=== PATIENT | female | born 1955 | race Caucasian/White ===

== ENCOUNTER → 2016-11-22 | Outpatient (CLI) | payer BC ==
[~2016-11-22] MED LIST: ADVIL PM PO; ATIVAN PO; CERTAGEN PO; FLEXERIL PO; IBUPROFEN PO; NORCO 5/325 TAB1 TAB PO; PROTONIX PO
--- NOTE | ~2016-11-22 | US5 ---
[facility] A Service of [facility] RADIOLOGY TEXT RESULTS PATIENT: RAFA WYNNE LOCATION: [facility] : 59 UNIT #: [id number] AGE: [address]: Jarek Franklin MD SEX: F ORDER DR: [id number] [address] [id number] O MR#: [id number] Acc #: [id number] NAME: RAFA WYNNE : 1955 SEX: F STUDY DATE/TIME: 11/22/2016 10:02 UNIT: [facility] ROOM: STUDY DESCRIPTION: US Abdominal Complete Attending Physician: Jarek Franklin M.D. Referring Physician: Jarek Franklin M.D. Ordering Physician: Jarek Franklin M.D. Primary Care Physician: Jarek Franklin M.D. MEDICAL IMAGING REPORT This report is preliminary unless electronic signature is present. EXAM Abdominal ultrasound complete 11/22/2016 INDICATIONS 61-year-old female with right upper quadrant pain for the past 6 months-year. Pain has been getting worse over the past 2-3 weeks. Nausea for months. TECHNIQUE Sonographic imaging of the abdomen was performed. No comparisons. FINDINGS The visualized aspects of the pancreas are unremarkable. Significant portions were obscured by bowel gas. Aorta and IVC not visualized due to bowel gas as well. The liver measures about 21.2 cm, long axis. Echogenicity suggests fatty infiltration. Liver otherwise unremarkable. The kidneys are nonobstructed, with the right measuring 10.4 cm long axis, and the left 10.6 cm. No shadowing stone on either side. The spleen measures 8.5 cm, long axis. The gallbladder is sonographically unremarkable. The common bile duct could not be visualized or assessed. IMPRESSION 1. Limited study due to obscuration by abdominal structures by bowel gas. 2. Hepatomegaly and fatty infiltration of the liver. 3. Gallbladder appears unremarkable. The common bile duct could not be visualized or assessed. Dictated by... Max De La Rosa M.D. [facility] A Service of [facility] RADIOLOGY TEXT RESULTS PATIENT: RAFA WYNNE [facility] UNIT #: [id number] AGE: [address]: Jarek Franklin MD SEX: F ORDER DR: THIS IS AN ELECTRONICALLY VERIFIED REPORT Max De La Rosa M.D. at 11/24/2016 6:14 AM Aisha TD: 11/22/2016 20:05 JOB #: [id number] MEDICAL IMAGING REPORT Page 1 of 1
== END | disposition home or self-care (01) ==
LOC: SGUS 09:59
DX: R10.11 Right upper quadrant pain (principal); R11.0 Nausea; R16.0 Hepatomegaly, not elsewhere classified; K76.0 Fatty (change of) liver, not elsewhere classified
CPT/HCPCS: 76700